=== PATIENT | female | born 1975 | race Caucasian/White ===

== ENCOUNTER → 2019-07-31 | Outpatient (CLI) | payer OTHER | END | disposition home or self-care (01) | LOC: LABPV 09:25 | DX: F31.32 Bipolar disorder, current episode depressed, moderate (principal) ==

== ENCOUNTER 2019-09-09 11:41 | Inpatient (IN) | payer OTHER ==
[~2019-09-09] VITALS: Ht 175.3 cm; Wt 119.4 kg
[2019-09-09] MEDS ORDERED: ALBUTEROL SULFATE HFA 90 MCG/PUFF 8 GM INHALER IH PRN (16:45)
[2019-09-09] MEDS ORDERED: LOPERAMIDE HCL 2 MG CAPSULE PO PRN (16:45)
[2019-09-09] MEDS ORDERED: CloNIDine HCL 0.1 MG TABLET PO PRN (16:45)
[2019-09-09] MEDS ORDERED: DOCUSATE SODIUM 100 MG CAPSULE PO PRN (16:45)
[2019-09-09] MEDS ORDERED: MAG HYDROX/AL HYDROX/SIMETH ES 30 ML SUSPENSION UDCUP PO PRN (16:45)
[2019-09-09] MEDS ORDERED: NICOTINE 14 MG/24 HOUR PATCH TD PRN (16:45)
[2019-09-09] MEDS ORDERED: ACETAMINOPHEN 325 MG TABLET PO PRN (16:45)
[2019-09-09] MEDS ORDERED: GuaiFENesin/D-METHORPHAN [SUGAR-FREE] 200-20MG/10 ML SYRUP UDCUP PO PRN (16:45)
[2019-09-09] MEDS ORDERED: MAGNESIUM HYDROXIDE SUSPENSION 30 ML UDCUP PO PRN (16:45)
[2019-09-09] MEDS ORDERED: ONDANSETRON HCL 4 MG TABLET PO PRN (16:45)
[2019-09-09] MEDS ORDERED: PETROLATUM,WHITE 28 GM JELLY TP PRN (16:45)
[2019-09-09 17:28] VITALS: BP 136/74
[2019-09-09] MEDS: BusPIRone HCL 5 MG TABLET PO SCH ×2 (17:37→20:31)
[2019-09-09] MEDS: LITHIUM CARBONATE 300 MG CAPSULE PO SCH (17:37)
[2019-09-09] MEDS: GABAPENTIN 300 MG CAPSULE PO SCH (17:37)
[2019-09-09 18:05] VITALS: BP 147/78
[2019-09-09] MEDS: LORazepam 2 MG TABLET PO PRN (18:13)
[2019-09-09] MEDS: IBUPROFEN 400 MG TABLET PO PRN (18:14)
[2019-09-09] MEDS: QUEtiapine FUMARATE 200 MG TABLET PO SCH (20:31)
[2019-09-10 00:34] VITALS: BP 133/62
[2019-09-10] MEDS: IBUPROFEN 400 MG TABLET PO PRN ×2 (00:34→09:09)
[2019-09-10] MEDS: LORazepam 2 MG TABLET PO PRN ×2 (00:38→09:52)
[2019-09-10 07:58] LABS: BASOPHILS % (AUTO) 0.4 % (0.0-2.0); EOSINOPHILS % (AUTO) 3.3 % (1.0-6.0); HEMATOCRIT 34.6 % (36-46); LYMPHOCYTES # (AUTO) 1.6 K/uL (1.0-4.8); LYMPHOCYTES % (AUTO) 14.8 % (22.0-44.0); MEAN CORPUSCULAR HEMOGLOBIN 27.5 pg (26.0-34.0); MEAN CORPUSCULAR HGB CONC 31.7 G/dL (31.0-37.0); MEAN CORPUSCULAR VOLUME 87 fL (80-100); MONOCYTES % (AUTO) 9.1 % (2.0-9.0); NEUTROPHILS # (AUTO) 8.1 K/uL (1.8-7.7); NEUTROPHILS % (AUTO) 72.4 % (40.0-70.0); PLATELET COUNT (AUTO) 260 K/uL (150-450); RED CELL DISTRIBUTION WIDTH 14.6 % (11.5-14.5)
[2019-09-10 08:07] LABS: LITHIUM 0.29 mmol/L (0.60-1.20)
[2019-09-10 08:08] VITALS: BP 133/66
[2019-09-10 08:24] LABS: HEMOGLOBIN A1C 5.5 % (3.8-5.6)
[2019-09-10 08:31] LABS: ALANINE AMINOTRANSFERASE 27 U/L (12-78); ALBUMIN 3.4 g/dL (3.4-5.0); ALKALINE PHOSPHATASE 97 U/L (46-116); ANION GAP 8 mmol/L (8-16); ASPARTATE AMINOTRANSFERASE 20 U/L (15-37); BILIRUBIN,TOTAL 0.6 mg/dL (0.1-1.0); CALCIUM, TOTAL 9.1 mg/dL (8.8-10.5); CARBON DIOXIDE 26 mmol/L (22-29); CHLORIDE 106 mmol/L (98-107); CHOL/HDL RATIO 2.6 (3.9-5.7); CHOLESTEROL 151 mg/dL (131-200); CREATININE 0.63 mg/dL (0.60-1.30); GLOMERULAR FILTR. RATE CALC > 60 mL/min (>60); GLUCOSE,RANDOM 106 mg/dL (70-110); HDL CHOLESTEROL 58 mg/dL (40-60); LDL CHOL (CALC.) 79 mg/dL (0-130); SODIUM SERUM 140 mmol/L (136-145); TOTAL PROTEIN, SERUM 7.6 g/dL (6.4-8.2); TRIGLYCERIDES 70 mg/dL (15-150); UREA NITROGEN, BLOOD 7 mg/dL (7-18)
[2019-09-10] MEDS: LITHIUM CARBONATE 300 MG CAPSULE PO SCH ×3 (09:04→17:04)
[2019-09-10] MEDS: BusPIRone HCL 5 MG TABLET PO SCH ×4 (09:04→20:52)
[2019-09-10] MEDS: GABAPENTIN 300 MG CAPSULE PO SCH ×2 (09:04→17:04)
[2019-09-10] MEDS: PANTOPRAZOLE SODIUM 40 MG DR TABLET PO SCH (09:04)
[2019-09-10] MEDS ORDERED: DICLOFENAC SODIUM 1% 100 GM GEL [4GM] TP PRN (10:30)
[2019-09-10 16:02] VITALS: BP 127/87
[2019-09-10] MEDS: QUEtiapine FUMARATE 200 MG TABLET PO SCH (20:52)
[2019-09-10] MEDS: HALOPERIDOL 5 MG TABLET PO PRN (22:10)
[2019-09-10] MEDS: ZOLPIDEM TARTRATE 10 MG TABLET PO PRN (22:10)
[2019-09-10] MEDS ORDERED: LITH300CRT PO (22:27)
[2019-09-10] MEDS ORDERED: PANT40TA25 PO (22:27)
[2019-09-10] MEDS ORDERED: GABA-531 PO (22:27)
[2019-09-10] MEDS ORDERED: BUSP5TAB20 PO (22:27)
[2019-09-11 03:57] VITALS: BP 130/88
[2019-09-11] MEDS: IBUPROFEN 400 MG TABLET PO PRN ×2 (06:09→22:33)
[2019-09-11 08:23] VITALS: BP 121/59
[2019-09-11] MEDS: GABAPENTIN 300 MG CAPSULE PO SCH ×2 (08:25→16:10)
[2019-09-11] MEDS: PANTOPRAZOLE SODIUM 40 MG DR TABLET PO SCH (08:25)
[2019-09-11] MEDS: BusPIRone HCL 5 MG TABLET PO SCH ×4 (08:25→20:15)
[2019-09-11] MEDS: LITHIUM CARBONATE 300 MG CAPSULE PO SCH ×3 (08:25→16:10)
[2019-09-11] MEDS: NICOTINE POLACRILEX 2 MG LOZENGE PO PRN ×2 (08:37→15:27)
[2019-09-11] MEDS: LORazepam 2 MG TABLET PO PRN (16:10)
[2019-09-11] MEDS: HALOPERIDOL 5 MG TABLET PO PRN (16:10)
[2019-09-11 16:23] VITALS: BP 180/93
[2019-09-11] MEDS: QUEtiapine FUMARATE 200 MG TABLET PO SCH (20:13)
[2019-09-11] MEDS: ZOLPIDEM TARTRATE 10 MG TABLET PO PRN (20:14)
[2019-09-12 03:44] VITALS: BP 127/72
[2019-09-12 08:13] VITALS: BP 139/92
[2019-09-12] MEDS: LITHIUM CARBONATE 300 MG CAPSULE PO SCH (08:24)
[2019-09-12] MEDS: BusPIRone HCL 5 MG TABLET PO SCH (08:24)
[2019-09-12] MEDS: GABAPENTIN 300 MG CAPSULE PO SCH (08:24)
[2019-09-12] MEDS: PANTOPRAZOLE SODIUM 40 MG DR TABLET PO SCH (08:25)
[2019-09-12] MEDS: IBUPROFEN 400 MG TABLET PO PRN (08:25)
[2019-09-12] MEDS ORDERED: GABA-531 PO (09:04)
[2019-09-12] MEDS ORDERED: BUSP5TAB20 PO (09:04)
[2019-09-12] MEDS ORDERED: QUET200T29 PO (09:04)
[2019-09-12] MEDS: NICOTINE POLACRILEX 2 MG LOZENGE PO PRN (10:04)
[2019-09-12] MEDS ORDERED: PANT40TA25 PO (10:45)
[2019-09-12] MEDS ORDERED: LITH300C3 PO ×2 (10:45→10:54)
== END 2019-09-12 11:45 | disposition home or self-care (01) | DRG 885 ==
LOC: B3A 13:54
DX: F31.2 Bipolar disorder, current episode manic severe with psychotic features (principal); M19.90 Unspecified osteoarthritis, unspecified site; K21.9 Gastro-esophageal reflux disease without esophagitis; I10 Essential (primary) hypertension; F10.10 Alcohol abuse, uncomplicated; F12.90 Cannabis use, unspecified, uncomplicated; Z79.899 Other long term (current) drug therapy; M25.511 Pain in right shoulder
CPT/HCPCS: 83036; 84443; Q0162

== ENCOUNTER 2019-09-17 09:35 | Inpatient (IN) | payer OTHER ==
[~2019-09-17] VITALS: Ht 175.3 cm; Wt 119.0 kg
[~2019-09-17 09:35] MED LIST: BUSP5TAB20 PO; GABA-531 PO; PANT40TA25 PO; QUET200T29 PO
[2019-09-17] MEDS ORDERED: GABAPENTIN 300 MG CAPSULE PO SCH (10:45)
[2019-09-17] MEDS ORDERED: HALOPERIDOL 5 MG TABLET PO PRN (10:45)
[2019-09-17] MEDS: LITHIUM CARBONATE 300 MG CAPSULE PO SCH ×2 (13:00→17:00)
[2019-09-17] MEDS ORDERED: BusPIRone HCL 5 MG TABLET PO SCH (13:00)
[2019-09-17] MEDS: GABAPENTIN 300 MG CAPSULE PO SCH ×2 (13:05→17:20)
[2019-09-17] MEDS: LORazepam 2 MG TABLET PO PRN (13:05)
[2019-09-17 13:23] VITALS: BP 154/97
[2019-09-17] MEDS ORDERED: PNEUMOCOCCAL VACCINE POLYVALENT 0.5 ML VIAL [PPSV23] IM ONE (13:45)
[2019-09-17] MEDS: BusPIRone HCL 5 MG TABLET PO SCH ×3 (13:50→21:02)
[2019-09-17] MEDS ORDERED: MAGNESIUM HYDROXIDE SUSPENSION 30 ML UDCUP PO PRN (14:00)
[2019-09-17] MEDS ORDERED: ALBUTEROL SULFATE HFA 90 MCG/PUFF 8 GM INHALER IH PRN (14:00)
[2019-09-17] MEDS ORDERED: NICOTINE 14 MG/24 HOUR PATCH TD PRN (14:00)
[2019-09-17] MEDS ORDERED: GuaiFENesin/D-METHORPHAN [SUGAR-FREE] 200-20MG/10 ML SYRUP UDCUP PO PRN (14:00)
[2019-09-17] MEDS ORDERED: LOPERAMIDE HCL 2 MG CAPSULE PO PRN (14:00)
[2019-09-17] MEDS ORDERED: CloNIDine HCL 0.1 MG TABLET PO PRN (14:00)
[2019-09-17] MEDS ORDERED: ONDANSETRON HCL 4 MG TABLET PO PRN (14:00)
[2019-09-17] MEDS ORDERED: DOCUSATE SODIUM 100 MG CAPSULE PO PRN (14:00)
[2019-09-17] MEDS ORDERED: PETROLATUM,WHITE 28 GM JELLY TP PRN (14:00)
[2019-09-17] MEDS: IBUPROFEN 400 MG TABLET PO PRN (16:54)
[2019-09-17 16:55] VITALS: BP 145/88
[2019-09-17] MEDS: QUEtiapine FUMARATE 200 MG TABLET PO SCH (20:42)
[2019-09-17] MEDS: ZOLPIDEM TARTRATE 10 MG TABLET PO PRN (20:43)
[2019-09-17] MEDS ORDERED: QUEtiapine FUMARATE 200 MG TABLET PO SCH (21:00)
[2019-09-18] MEDS: LORazepam 2 MG TABLET PO PRN ×3 (03:01→19:16)
[2019-09-18] MEDS: IBUPROFEN 400 MG TABLET PO PRN ×3 (03:01→19:20)
[2019-09-18 03:02] VITALS: BP 143/93
[2019-09-18 03:47] VITALS: BP 135/86
[2019-09-18 08:00] LABS: BASOPHILS % (AUTO) 0.5 % (0.0-2.0); EOSINOPHILS % (AUTO) 3.4 % (1.0-6.0); HEMATOCRIT 29.7 % (36-46); HEMOGLOBIN 9.5 g/dL (12.0-16.0); LYMPHOCYTES # (AUTO) 1.6 K/uL (1.0-4.8); LYMPHOCYTES % (AUTO) 18.2 % (22.0-44.0); MEAN CORPUSCULAR HEMOGLOBIN 27.5 pg (26.0-34.0); MEAN CORPUSCULAR VOLUME 86 fL (80-100); MONOCYTES # (AUTO) 0.8 K/uL (0.1-1.0); MONOCYTES % (AUTO) 9.2 % (2.0-9.0); NEUTROPHILS # (AUTO) 6.1 K/uL (1.8-7.7); NEUTROPHILS % (AUTO) 68.7 % (40.0-70.0); PLATELET COUNT (AUTO) 327 K/uL (150-450); RED BLOOD CELL COUNT(AUTO) 3.45 MIL/uL (4.00-5.20); RED CELL DISTRIBUTION WIDTH 14.9 % (11.5-14.5)
[2019-09-18] MEDS: BusPIRone HCL 5 MG TABLET PO SCH ×4 (08:10→21:54)
[2019-09-18] MEDS: GABAPENTIN 300 MG CAPSULE PO SCH ×2 (08:11→17:14)
[2019-09-18] MEDS: LITHIUM CARBONATE 300 MG CAPSULE PO SCH ×4 (08:19→17:14)
[2019-09-18 08:23] VITALS: BP 161/90
[2019-09-18 08:41] LABS: ALANINE AMINOTRANSFERASE 21 U/L (12-78); ALBUMIN 2.9 g/dL (3.4-5.0); ALKALINE PHOSPHATASE 101 U/L (46-116); ANION GAP 7 mmol/L (8-16); ASPARTATE AMINOTRANSFERASE 15 U/L (15-37); BILIRUBIN,TOTAL 0.1 mg/dL (0.1-1.0); CALCIUM, TOTAL 8.8 mg/dL (8.8-10.5); CARBON DIOXIDE 27 mmol/L (22-29); CHLORIDE 105 mmol/L (98-107); CHOL/HDL RATIO 2.5 (3.9-5.7); CHOLESTEROL 115 mg/dL (131-200); CREATININE 0.58 mg/dL (0.60-1.30); GLOMERULAR FILTR. RATE CALC > 60 mL/min (>60); GLUCOSE,RANDOM 127 mg/dL (70-110); HDL CHOLESTEROL 46 mg/dL (40-60); LDL CHOL (CALC.) 56 mg/dL (0-130); POTASSIUM 3.7 mmol/L (3.5-5.1); SODIUM SERUM 139 mmol/L (136-145); THYROID STIMULATING HORMONE 1.58 uIU/mL (0.36-3.74); TOTAL PROTEIN, SERUM 7.3 g/dL (6.4-8.2); TRIGLYCERIDES 65 mg/dL (15-150); UREA NITROGEN, BLOOD 10 mg/dL (7-18)
[2019-09-18] MEDS ORDERED: PANTOPRAZOLE SODIUM 40 MG DR TABLET PO SCH ×2 (09:00)
[2019-09-18 09:01] LABS: HEMOGLOBIN A1C 5.9 % (3.8-5.6)
[2019-09-18] MEDS: MAG HYDROX/AL HYDROX/SIMETH ES 30 ML SUSPENSION UDCUP PO PRN (11:37)
[2019-09-18] MEDS: ACETAMINOPHEN 325 MG TABLET PO PRN (11:37)
[2019-09-18] MEDS: LOSARTAN POTASSIUM 25 MG TABLET PO SCH (13:04)
[2019-09-18 19:19] VITALS: BP 158/97
[2019-09-18] MEDS: QUEtiapine FUMARATE 200 MG TABLET PO SCH (21:54)
[2019-09-18] MEDS: ZOLPIDEM TARTRATE 10 MG TABLET PO PRN (21:55)
[2019-09-19 04:45] VITALS: BP 140/88
[2019-09-19] MEDS: IBUPROFEN 400 MG TABLET PO PRN ×2 (06:45→20:22)
[2019-09-19 08:08] VITALS: BP 175/101
[2019-09-19] MEDS: LOSARTAN POTASSIUM 25 MG TABLET PO SCH (08:26)
[2019-09-19] MEDS: GABAPENTIN 300 MG CAPSULE PO SCH ×2 (08:27→16:39)
[2019-09-19] MEDS: BusPIRone HCL 5 MG TABLET PO SCH ×4 (08:27→20:21)
[2019-09-19] MEDS: LITHIUM CARBONATE 300 MG CAPSULE PO SCH ×3 (08:27→16:38)
[2019-09-19] MEDS: NICOTINE POLACRILEX 2 MG LOZENGE PO PRN ×3 (08:27→17:11)
[2019-09-19] MEDS: LORazepam 2 MG TABLET PO PRN ×2 (08:30→16:39)
[2019-09-19 14:08] VITALS: BP 140/88
[2019-09-19 16:28] VITALS: BP 151/104
[2019-09-19] MEDS: ACETAMINOPHEN 325 MG TABLET PO PRN (16:40)
[2019-09-19 18:00] VITALS: BP 138/98
[2019-09-19] MEDS: QUEtiapine FUMARATE 200 MG TABLET PO SCH (20:22)
[2019-09-19 20:24] VITALS: BP 118/60
[2019-09-20] VITALS (7 sets, daily range): BP systolic 100–166; BP diastolic 60–91
[2019-09-20] MEDS: ACETAMINOPHEN 325 MG TABLET PO PRN ×2 (02:43→17:45)
[2019-09-20] MEDS: NICOTINE POLACRILEX 2 MG LOZENGE PO PRN ×5 (02:45→20:22)
[2019-09-20] MEDS: IBUPROFEN 400 MG TABLET PO PRN ×2 (05:37→22:47)
[2019-09-20] MEDS: PANTOPRAZOLE SODIUM 40 MG DR TABLET PO SCH (06:02)
[2019-09-20] MEDS: LOSARTAN POTASSIUM 25 MG TABLET PO SCH (08:11)
[2019-09-20] MEDS: BusPIRone HCL 5 MG TABLET PO SCH ×4 (08:12→20:24)
[2019-09-20] MEDS: LITHIUM CARBONATE 300 MG CAPSULE PO SCH ×3 (08:12→16:04)
[2019-09-20] MEDS: GABAPENTIN 300 MG CAPSULE PO SCH ×2 (08:12→16:05)
[2019-09-20] MEDS: LORazepam 2 MG TABLET PO PRN ×2 (11:51→16:18)
[2019-09-20] MEDS: TraMADol HCL 50 MG TABLET PO PRN ×2 (13:27→20:20)
[2019-09-20] MEDS ORDERED: LOSA25TA71 PO (19:30)
[2019-09-20] MEDS ORDERED: LITH300C3 PO (19:30)
[2019-09-20] MEDS: QUEtiapine FUMARATE 200 MG TABLET PO SCH (20:20)
[2019-09-21] MEDS: MAG HYDROX/AL HYDROX/SIMETH ES 30 ML SUSPENSION UDCUP PO PRN (03:22)
[2019-09-21 04:03] VITALS: BP 130/64
[2019-09-21] MEDS: NICOTINE POLACRILEX 2 MG LOZENGE PO PRN ×2 (06:06→08:24)
[2019-09-21] MEDS: PANTOPRAZOLE SODIUM 40 MG DR TABLET PO SCH (06:06)
[2019-09-21 07:58] LABS: APPEARANCE,URINE CLEAR (CLEAR); BILIRUBIN,URINE NEGATIVE (NEGATIVE); GLUCOSE, URINE (UA) NEGATIVE (NEGATIVE); KETONES,URINE NEGATIVE (NEGATIVE); LEUKOCYTE ESTERASE ,URINE NEGATIVE (NEGATIVE); NITRATE,URINE NEGATIVE (NEGATIVE); OCCULT BLOOD,URINE TRACE (NEGATIVE); PROTEIN,URINE NEGATIVE (NEGATIVE); UROBILINOGEN,URINE 0.2 mg/dL (<=1.0)
[2019-09-21 08:04] LABS: AMPHET/METH SCREEN,URINE NEGATIVE (NEGATIVE); BARBITURATE SCREEN, URINE NEGATIVE (NEGATIVE); BENZODIAZEPINES SCREEN,URINE NEGATIVE (NEGATIVE); CANNABINOID SCREEN,URINE POSITIVE (NEGATIVE); COCAINE SCREEN,URINE NEGATIVE (NEGATIVE); METHADONE SCREEN, URINE NEGATIVE (NEGATIVE); OPIATE SCREEN,URINE NEGATIVE (NEGATIVE)
[2019-09-21 08:07] LABS: PHENCYCLIDINE SCREEN,URINE NEGATIVE (NEGATIVE)
[2019-09-21] MEDS: LITHIUM CARBONATE 300 MG CAPSULE PO SCH ×3 (08:10→16:09)
[2019-09-21] MEDS: BusPIRone HCL 5 MG TABLET PO SCH ×3 (08:11→16:10)
[2019-09-21] MEDS: GABAPENTIN 300 MG CAPSULE PO SCH ×2 (08:11→16:09)
[2019-09-21] MEDS: LOSARTAN POTASSIUM 25 MG TABLET PO SCH (08:11)
[2019-09-21 08:21] LABS: BACTERIA,URINE None Seen /HPF (None Seen); RBC,URINE None Seen /HPF (0-2); SQUAMOUS EPITHELIAL CELL,UR Few /LPF (None Seen); WBC,URINE None Seen /HPF (0-5)
[2019-09-21 08:23] VITALS: BP 127/71
[2019-09-21] MEDS: IBUPROFEN 400 MG TABLET PO PRN (08:23)
[2019-09-21] MEDS: LORazepam 2 MG TABLET PO PRN (08:24)
[2019-09-21] MEDS ORDERED: BUSP5TAB20 PO (09:29)
[2019-09-21] MEDS ORDERED: QUET200T29 PO (09:29)
[2019-09-21] MEDS ORDERED: LITH300C3 PO (09:29)
[2019-09-21] MEDS ORDERED: GABA-531 PO (09:29)
[2019-09-21 12:20] VITALS: BP 124/70
[2019-09-21] MEDS: TraMADol HCL 50 MG TABLET PO PRN (12:20)
[2019-09-21 16:10] VITALS: BP 117/63
== END 2019-09-21 16:43 | disposition home or self-care (01) | DRG 885 ==
LOC: B3A 10:46
DX: F31.2 Bipolar disorder, current episode manic severe with psychotic features (principal); D64.9 Anemia, unspecified; F10.10 Alcohol abuse, uncomplicated; F12.10 Cannabis abuse, uncomplicated; I10 Essential (primary) hypertension; K21.9 Gastro-esophageal reflux disease without esophagitis; M19.90 Unspecified osteoarthritis, unspecified site; R73.03 Prediabetes; Z79.899 Other long term (current) drug therapy
CPT/HCPCS: 73502; 80307; 83036; 84443; 87081; 90732